=== PATIENT | female | born 1990 | race Hispanic/Latino ===

== ENCOUNTER 2017-05-03 20:30 | Emergency (ER) | payer OTHER ==
[~2017-05-03] VITALS: Ht 157.5 cm; Wt 95.3 kg
--- OUTSIDE RECORDS SUMMARY | 2017-05-03 20:33 | XMS REPORT ---
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 Allergies, Adverse Reactions, Alerts This patient has no known allergies or adverse reactions. Medications This patient has no known medications. Results Test Description Test Time Test Comments Text Results Atomic Results Result Comments US OB TRANSVAG 1ST TRI SINGLE [place] [address] Patient Name: EMILIE ACEVEDO MR #: [id number] : 1990 Age/Sex: 26/F Req #: [id number] Adm Physician: Ordered by: JESUS BERMEO MD Report #: [id number] Location: ER Room/Bed: Procedure: [id number] US/US OB TRANSVAG 1ST TRI SINGLE Exam Date: Exam Time: REPORT STATUS: Signed EXAM: Obstetric Pelvic Ultrasound INDICATION: COMPARISON: None TECHNIQUE: Transabdominal and transvaginal evaluation of the pelvis was performed in the transverse and longitudinal planes. CLINICAL HISTORY: 26 year old A0; last menstrual period: None FINDINGS: Uterus: Orientation: Normal Size: 9.5 x 5.2 x 5.6 cm, enlarged Mass: None Cervix: Normal Gestational Sac: Location: Intrauterine Average sac diameter: 1.6 cm Estimated sonographic GA: 6 weeks and 3 days Appearance: Normal in contour Subchorionic hemorrhage: None Yolk sac: Normal Embryo/Fetus: [place] rump length: 0.6 cm Estimated sonographic GA: 6 weeks and 2 days Cardiac activity: 104 bpm Right ovary Size: 2.7 x 1.9 x 2.2 cm Mass/Cyst: None Left ovary Size: 3.5 x 2.3 x 3.2 cm Mass/Cyst: 2.4 cm corpus luteal cyst Cul-de-sac: No free fluid IMPRESSION: Viable single intrauterine . No subchorionic hemorrhage. Signed by: Dr. Alejo Hugo M.D. on 10/27/2016 6:04 PM Dictated By: ALEJO HUGO MD 03 Transcribed By: DARIANA on 10/27/161803 COPY TO: JESUS BERMEO MD
[2017-05-03 21:48] LABS: BILIRUBIN,URINE NEGATIVE (NEGATIVE); KETONES,URINE NEGATIVE (NEGATIVE); LEUKOCYTE ESTERASE ,URINE 2+ (NEGATIVE); NITRITE,URINE NEGATIVE (NEGATIVE); URINE UROBILINOGEN 0.2 mg/dL (0.2 - 1)
[2017-05-03 21:50] LABS: CLARITY,URINE SL CLOUDY (CLEAR); COLOR,URINE YELLOW (YELLOW); PROTEIN,URINE DIPSTICK TRACE (NEGATIVE)
[2017-05-03 22:06] LABS: BACTERIA,URINE MODERATE /HPF; CALCIUM OXALATE CRYSTALS,UR RARE (FEW); EPITHELIAL CELLS,URINE MANY /LPF; RBC,URINE 0-5 /HPF (0-5)
== END 2017-05-03 21:59 | disposition left against medical advice (07) ==
LOC: ER 20:30
DX: O26.893 Other specified pregnancy related conditions, third trimester (principal); R10.30 Lower abdominal pain, unspecified; V43.62XA Car passenger injured in collision with other type car in traffic accident, initial encounter; Y92.488 Other paved roadways as the place of occurrence of the external cause
CPT/HCPCS: 81001

== ENCOUNTER 2020-09-16 15:51 | Emergency (ER) | payer SELFPAY ==
[~2020-09-16] VITALS: Ht 160 cm; Wt 106.6 kg
[2020-09-16] MEDS ORDERED: BACTRIM DS TAB1 EACH PO (18:59)
[2020-09-16] MEDS ORDERED: CEPHALEXIN500 MG PO (18:59)
[2020-09-16] MEDS ORDERED: HYDROCODONE/APAP 10MG-325MG TAB PO ONE (19:00)
== END 2020-09-16 19:40 | disposition home or self-care (01) ==
LOC: ER 18:56
DX: L02.31 Cutaneous abscess of buttock (principal); S20.111A Abrasion of breast, right breast, initial encounter
CPT/HCPCS: 99282